=== PATIENT | male | born 1980 | race Caucasian/White ===

== ENCOUNTER 2018-01-01 12:43 | Emergency (ER) | payer OTHER ==
[2018-01-01 12:56] VITALS: BP 157/80; PULSE 102; RESP 20; TEMP 99.9
--- NOTE | 2018-01-01 13:28 | ED ---
General Adult HPI - General Chief complaint: Skin/Abscess/Foreign Body Stated complaint: skin problems Time Seen by Provider: 01/01/18 12:57 Source: patient, RN notes reviewed Mode of arrival: ambulatory Limitations: no limitations - History of Present Illness Initial comments: 37-year-old male presents to the emergency department for a chief complaint of rash 3 years. Patient states he has been diagnosed with ringworm multiple times and treated with antifungals. Patient states the rash is not any worse today as it has been in the past. Patient states the rash is actually appearing good today. Patient states the antifungals do help but then the rash comes back. Patient states it is always on his face under his jin. Patient states he has not been to a woods boss. Patient denies any fevers or chills at home. Patient denies any other complaints at this time. Patient denies neck stiffness, shortness of breath, cough, chest pain, abdominal pain, nausea or vomiting. - Related Data Previous Rx's Medication Instructions Recorded Ketoconazole [Ketoconazole 2%] 1 applic TOPICAL DAILY 14 Days gm 01/01/18 Allergies Allergy/AdvReac Type Severity Reaction Status Date / Time No Known Allergies Allergy Verified 01/01/18 12:56 Review of Systems ROS Statement: Those systems with pertinent positive or pertinent negative responses have been documented in the HPI. ROS Other: All systems not noted in ROS Statement are negative. Past Medical History Past Medical History: No Reported History History of Any Multi-Drug Resistant Organisms: None Reported Past Surgical History: No Surgical Hx Reported Past Psychological History: No Psychological Hx Reported Smoking Status: Never smoker Past Alcohol Use History: Occasional Past Drug Use History: Marijuana General Exam Limitations: no limitations General appearance: alert, in no apparent distress Head exam: Present: atraumatic, normocephalic, normal inspection ENT exam: Present: normal exam, normal oropharynx, mucous membranes moist, TM's normal bilaterally Neck exam: Present: normal inspection, full ROM. Absent: tenderness (no tenderness, full ROM, no stiffness, ), meningismus, lymphadenopathy (No anterior or posterior cervical LN palpated. ) Respiratory exam: Present: normal lung sounds bilaterally. Absent: respiratory distress, wheezes, rales, rhonchi, stridor Cardiovascular Exam: Present: regular rate, normal rhythm, normal heart sounds. Absent: systolic murmur, diastolic murmur, rubs, gallop, clicks GI/Abdominal exam: Present: soft, normal bowel sounds. Absent: distended, tenderness, guarding, rebound, rigid Skin exam: Present: warm, dry, intact, normal color, rash (There are a few small slightly erythematous 1 cm x 1 cm discoid lesions appearing as ring worm under the jin. No drainge or spreading redness. ) Course Vital Signs 01/01/18 12:53 Temperature 99.9 F H Pulse Rate 102 H Respiratory 20 Rate Blood Pressure 157/80 O2 Sat by Pulse 99 Oximetry Medical Decision Making - Medical Decision Making 37-year-old male presents to the emergency department for chief complaint of ringworm 3 years. Patient states he has been diagnosed multiple [facility] and given Lamisil. Patient would like a different antifungal today. Patient denies any fevers or chills at home. He denies any other complaints at this time. He states the antifungals do help but it comes back. Patient has not seen a woods boss for this problem. Exam did show small 1 cm x 1 cm discoid lesions in the jin. Patient was given ketoconazole And told to follow- up with dermatology. He is happy to have a referral to dermatology. He was also educated to try the Lamisil [id number] shampoo on the jin if he does not want to shave it. He will return to the emergency department if symptoms worsen or do not improve. Otherwise he will follow-up with dermatology in 1-2 days. Disposition Clinical Impression: Tinea corporis Disposition: HOME SELF-CARE Condition: Good Instructions: Tinea Corporis (ED) Additional Instructions: Please use cream as directed. Please follow-up with dermatology in 1-2 days. Return to the emergency Department if you notice any worsening symptoms. Prescriptions: Ketoconazole [Ketoconazole 2%] 1 applic TOPICAL DAILY 14 Days gm Is patient prescribed a controlled substance at d/c from ED?: No Referrals: None,Stated [Primary Care Provider] - 1-2 days Ty Willis MD [STAFF PHYSICIAN] - 1-2 days Time of Disposition: 13:32
== END 2018-01-01 13:38 | disposition home or self-care (01) ==
LOC: EC 12:43
DX: B35.4 Tinea corporis (principal)
CPT/HCPCS: 99282

== ENCOUNTER 2020-06-11 13:15 | Emergency (ER) | payer OTHER ==
[2020-06-11 13:30] VITALS: BP 133/82; PULSE 107; RESP 18; TEMP 98.7
[2020-06-11] MEDS ORDERED: CEPHALEXIN 500 MG CAP PO STA (15:01)
[2020-06-11] MEDS ORDERED: CEPHALEXIN 500MG STARTER PACK 4 CAP BTL PO STA (15:01)
[2020-06-11] MEDS ORDERED: SULFAMETH-TMP DS STARTER PACK 2 TAB BTL PO STA (15:01)
[2020-06-11] MEDS ORDERED: SULFAMETHOX-TMP 800-160MG 1 EACH TAB PO STA (15:01)
[2020-06-11] MEDS ORDERED: ACET/COD 300 MG/30 MG STARTER PACK 6 TAB BTL PO STA (15:05)
--- NOTE | 2020-06-11 15:08 | ED ---
General Adult HPI - General Chief complaint: Skin/Abscess/Foreign Body Stated complaint: Skin Issue Time Seen by Provider: 06/11/20 14:07 Source: patient, RN notes reviewed, old records reviewed Mode of arrival: ambulatory Limitations: no limitations - History of Present Illness Initial comments: 40-year-old male patient with no pertinent past medical history presents to ED for evaluation of right gluteal abscess. Patient reports that has been ongoing for about 1 week. He reports that last night it started spontaneously draining. He denies any systemic symptoms. Denies any fevers nausea vomiting or diarrhea. He reports that is painful especially with sitting. He denies any history of immunocompromise state or any prior issues with infections. And is denying any IV drug use. Systemic: Pt denies fatigue, fever/chills, rash. Pt denies weakness, night sweats, weight loss. Neuro: Pt denies headache, visual disturbances, syncope or pre-syncope. HEENT: Pt denies ocular discharge or irritation, otalgia, rhinorrhea, pharyngitis or notable lymphadenopathy. Cardiopulmonary: Pt denies chest pain, SOB, heart palpitations, dyspnea on exertion. Abdominal/GI: Pt denies abdominal pain, n/v/d. : Pt denies dysuria, burning w/ urination, frequency/urgency. Denies new onset urinary or bowel incontinence. MSK: Pt denies myalgia, loss of strength or function in extremities. Neuro: Pt denies new onset weakness, paresthesias. - Related Data Previous Rx's Medication Instructions Recorded Ketoconazole [Ketoconazole 2%] 1 applic TOPICAL DAILY 14 Days gm 01/01/18 Cephalexin [Keflex] 500 mg PO Q6HR 10 Days #40 cap 06/11/20 Sulfamethox-Tmp 800-160Mg [Bactrim 1 tab PO Q12HR #20 tab 06/11/20 DS 800-160 mg] Allergies Allergy/AdvReac Type Severity Reaction Status Date / Time No Known Allergies Allergy Verified 06/11/20 13:26 Review of Systems ROS Statement: Those systems with pertinent positive or pertinent negative responses have been documented in the HPI. ROS Other: All systems not noted in ROS Statement are negative. Past Medical History Past Medical History: No Reported History History of Any Multi-Drug Resistant Organisms: None Reported Past Surgical History: No Surgical Hx Reported Past Psychological History: No Psychological Hx Reported Smoking Status: Never smoker Past Alcohol Use History: Occasional, Rare Past Drug Use History: Marijuana General Exam - General Exam Comments Initial Comments: Constitutional: NAD, AOX3, Pt has pleasant affect. HEENT: NC/AT, trachea midline, neck supple, no lymphadenopathy. External ears appear normal, without discharge. Mucous membranes moist. Eyes PERRLA, EOM intact. There is no scleral icterus. No pallor noted. Cardiopulmonary: RRR, no murmurs, rubs or gallops, no JVD noted. Lungs CTAB in anterior and posterior tate. No peripheral edema. Abdominal exam: Abdomen soft and non-distended. Abdomen non-tender to palpation in all 4 quadrants. Bowel sounds active in LLQ. No hepatosplenomegaly. No ecchymosis Neuro: CN II-XII grossly intact. No nuchal rigidity. MSK: Right gluteal abscess approximately 4 x 4 centimeters lateral to the in tergluteal cleft. No rectal involvement. Spontaneously draining. Full active ROM in upper and lower extremities. Limitations: no limitations Course Vital Signs 06/11/20 13:27 Temperature 98.7 F Pulse Rate 107 H Respiratory 18 Rate Blood Pressure 133/82 O2 Sat by Pulse 99 Oximetry Procedures - Incision & Drainage Consent Obtained: verbal consent, written consent Indication: right gluteal abscess Site: buttock Size (cm): 4 I&D Cleaning Method: Chloroprep Scalpel Used: #11 I&D Drainage Obtained: Pus Culture Obtained?: Yes Patient Tolerated Procedure: well Medical Decision Making - Medical Decision Making 40-year-old male patient with no pertinent past medical history presents to ED for evaluation of right gluteal abscess. Patient reports that has been ongoing for about 1 week. He reports that last night it started spontaneously draining. He denies any systemic symptoms. Denies any fevers nausea vomiting or diarrhea. He reports that is painful especially with sitting. He denies any history of immunocompromise state or any prior issues with infections. And is denying any IV drug use. Patient vital signs are stable, afebrile. Physical exam did display a 4 x 4 centimeter abscess. Incision and drainage was performed which did display purulent drainage. Aerobic culture was obtained. Patient will be initiated on Bactrim and Keflex. Will be discharged with very strict return precautions which he verbalizes understanding of. As well as outpatient follow-up. Case discussed with Dr. Perez. Disposition Clinical Impression: Abscess Disposition: HOME SELF-CARE Condition: Stable Instructions (If sedation given, give patient instructions): Abscess (ED) Additional Instructions: Take antibiotics as directed. Follow up with primary care provider tomorrow. Return to ED with any worsening symptoms. Continue to use warm compresses and keep the area loosely bandaged with some gauze. Prescriptions: Sulfamethox-Tmp 800-160Mg [Bactrim DS 800-160 mg] 1 tab PO Q12HR #20 tab Cephalexin [Keflex] 500 mg PO Q6HR 10 Days #40 cap Is patient prescribed a controlled substance at d/c from ED?: No Referrals: None,Stated [Primary Care Provider] - 1-2 days Varsha Gastelum MD [REFERRING] - 1-2 days Andrse Bedoya [STAFF PHYSICIAN] - 1-2 days
== END 2020-06-11 15:42 | disposition home or self-care (01) ==
LOC: EC 13:15
DX: L02.31 Cutaneous abscess of buttock (principal)
CPT/HCPCS: 10060; 87070; 87205; 99284